=== PATIENT | female | born 1975 | race Caucasian/White ===

== ENCOUNTER → 2023-07-08 | Outpatient (CLI) | payer OTHER ==
--- NOTE | 2023-07-08 17:36 | P.SLEEP ---
History of Present Illness DATE: 07/08/2023 CONSULTATION/NEW PATIENT EVALUATION HISTORY OF PRESENT ILLNESS/SLEEP-WAKE EVALUATION: 47-year-old lady had been evaluated in the sleep center for possible obstructive sleep apnea hypopnea syndrome. Patient has history of obstructive sleep apnea hypopnea syndrome diagnosed in 2016. At that time patient was treated with BiPAP. Her BiPAP unit is not working properly for about 1 year, patient did not use it for that period of time. I checked unit, motor life expectancy have been exceeded. SLEEP SCHEDULE: Usually sleep schedule usually patient goes to bed around 10:3011 PM, wake up around 7 AM and gets out of bed around 10:30 AM. FALLING ASLEEP: Patient has problems with falling asleep. DURING SLEEP: Patient snores, has episodes of stop breathing during the sleep, wakes up from sleep up to 4 times with more than 2 times episodes of nocturia. Positive history of leg cramps, gasping for air, feeling cold No history of hypnogogical hallucinations, sleep paralysis, or cataplexy. Positive history of sleep talking, palpitations, panic attacks, grinding teeth. DURING THE DAY/WAKE STATE: In the morning patient wake up tired, has difficulties to place attention, with about his sleep. [place] sleepiness scale is 9, which is borderline. Usually patient doesn't take naps. PAST MEDICAL HISTORY: History of CHF, history of cardiac arrhythmia. PAST SURGICAL HISTORY: Bicuspid aortic valve replacement, pulmonary well through placement, pacemaker/defibrillator insertion. MEDICATIONS: Coreg 12.5 mg twice a day, Bumex 2 mg twice a day, allopurinol 100 mg once a day, Entresto 97 mg twice a day. SOCIAL HISTORY: Positive history of smoking for about 16 years 2 packs a day quit in 2011, alcohol consumption none. FAMILY HISTORY: Hypertension, cancer. REVIEW OF SYSTEMS: Loud snoring, multiple awakenings from sleep. No fevers. No double vision. No recent chest pain. No shortness of breath. No abdominal pain. No bleeding episodes. No blood in urine. No seizure episodes. PHYSICAL EXAMINATION: GENERAL: A pleasant patient without any distress. VITAL SIGNS: BP 102/72 , HR 85 , RR 12 , weight 292.8 pounds, height 5 foot 5 inches, body mass index 48.5 . HEENT: PERRLA, EOMI. Evaluation of oropharynx showed tongue protrudes midline, low position of soft palate Mallampati 3. NECK: Supple. No JVD. Thyroid is not palpable. 16 inches in circumference. LUNGS: Clear to percussion and to auscultation. Good air exchange. No wheezing or rhonchi. HEART: S1, S2 regular. No murmurs, gallops or rubs. ABDOMEN: Soft and nontender. Bowel sounds are present. No organomegaly appreciated. EXTREMITIES: No clubbing or cyanosis. MIXER WET POUR: Awake, alert, and oriented x3. Cranial nerves 2 to 7 intact. There is no fasciculation or atrophy noted. No focal deficits observed. ASSESSMENT: 1. Loud snoring, multiple awakenings from sleep, small oropharyngeal airspace, wide neck 16 inches in circumference. Obstructive sleep apnea hypopnea syndrome. 2. History of CHF. 3. Status post bicuspid aortic valve replacement. 4. Status post pulmonary valve replacement. 5 status post cardiac arrest in 2011. 6 . Status post permanent pacemaker defibrillator insertion. 7. Obesity, BMI 48.5. PLAN: 1. Polysomnography for evaluation of patient's breathing during sleep. 2. CPAP/BiPAP titration if sleep study confirms obstructive sleep apnea- hypopnea syndrome. 3. Preferable position during sleep on the side. 4. No driving if patient feels any sleepiness. Patient is aware of civil and criminal liability for unsafe driving. 5. Sleep hygiene with regular sleep time for at least 7.5-8 hours. 6. Watching and losing weight. Thank you very much for referring this patient for consultation. Sincerely, Nilay Napoles MD, PhD, FAASM. Diplomat of [place] [employer], Sleep Medicine Board by [place] [employer] Specialities [place] Board of [employer] Medicine Sports Book Server of [facility] [place] Sleep Note - Sleep Note Sleep Note: Temperature: Pulse Rate: Respiratory Rate: Blood Pressure: SpO2: Height: Weight: BMI: Neck Circumference:
== END ==
LOC: 3 N SLEEP 14:45
PROVIDERS: ATTEND Internal Medicine
DX: G47.33 Obstructive sleep apnea (adult) (pediatric) (principal); E66.9 Obesity, unspecified; I50.9 Heart failure, unspecified; Z87.891 Personal history of nicotine dependence; Z95.2 Presence of prosthetic heart valve; Z95.4 Presence of other heart-valve replacement; Z68.42 Body mass index [BMI] 45.0-49.9, adult; Z95.0 Presence of cardiac pacemaker
CPT/HCPCS: 99202

== ENCOUNTER → 2023-07-26 | Outpatient (CLI) | payer OTHER ==
--- NOTE | 2023-07-29 12:05 | P.PCN ---
Description of Procedure: POLYSOMNOGRAPHY REPORT PROCEDURE(S)/DATE(S): Polysomnography 07/26/2023 CLINICAL: Patient has been seen in the sleep center for evaluation of obstructive sleep apnea-hypopnea syndrome. Please see my consultation. Sleep study has been done for evaluation of patient breathing during the sleep. PROCEDURE: The standard montage for clinical polysomnography included the electroencephalogram, the electrooculogram, the mentalis surface electromyography and Lead II cardiography. The respiratory battery consisted of measurements of nasal/buccal air flow, pressure transducer measurements from nose, thoracic and/or abdominal effort and intercostal surface electromyography. Video monitoring has been done to check for any parasomnia events. Nocturnal oxyhemoglobin saturations were obtained by finger oximetry. Step-mario titration with positive airway pressure was utilized to control the respiratory events, if necessary. RESULTS: During the diagnostic sleep study sleep efficiency was significantly decreased to 70.7 %. Latency to sleep onset was normal 17.0 min. Sleep archite cture showed stage NI was extremely high 29.0 %, Delta sleep was normal 8.2 %, REM sleep was practically absent 0.2 %. Respiratory channel showed 0 obstructive apneas, 1 mixed apneas, 0 central apne as, 102 hypopneas with lowest oxygen level 71 %. Total apnea hypopnea index was 22.5. Heart rate was in the range between 58 and 69, average 62. EMG showed 35.2 periodic limb movements per hour with 0.9 micro-arousals per hour. IMPRESSIONS: 1. Moderate Obstructive sleep apnea hypopnea syndrome. 2. Significant periodic limb movements have been documented. Please see other impressions from consultation PLAN: 1. The patient will have PAP titration for correction of respiratory abnormalities during the sleep. 2. Losing weight program. 3. Sleep hygiene with regular time in bed for at least 7-1/2 hours. 4. No driving if feeling sleepiness. 5. Please check iron profile including ferritin level. Low level of iron may increase the risk for periodic limb movements. Thank you very much for allowing me to participate in the management of your patient. Sincerely, Nilay Napoles MD, PhD, FAASM. Diplomat of [place] [employer] Medicine, Sleep Medicine Board by [place] [employer] Medicine Circular Ripsaw Operator of [facility] [place]
== END ==
LOC: 3 N SLEEP 18:47
PROVIDERS: ATTEND Internal Medicine
DX: G47.33 Obstructive sleep apnea (adult) (pediatric) (principal)
CPT/HCPCS: 95810

== ENCOUNTER 2023-09-28 19:26 | Outpatient (CLI) | payer OTHER ==
--- NOTE | 2023-10-01 12:48 | P.PCN ---
Description of Procedure: CLINICAL: Titration with positive air pressure has been done for correction of respiratory abnormalities during sleep. DESCRIPTION OF PROCEDURE: The standard montage for clinical polysomnography included the electroencephalogram, the electrocardiogram, the mentalis surface electromyography and Lead II cardiography. The respiratory battery consisted of measurements of nasal /buccal air flow, pressure transducer measurements from the nose, thoracic and /or abdominal effort and intercostal surface electromyography. Video monitoring has been done to check for any parasomnia events. Nocturnal oxyhemoglobin saturations were obtained by finger oximetry. Step-mario titration with positive airway pressure was utilized to control respiratory events. Raw data of sleep recording has been reviewed and is adequate. RESULTS: Patient left against medical advice in 48 minutes after testing was started. Patient did not fell asleep. Patient did not feel comfortable with lowest CPAP pressure of 4 cm of water and BiPAP 6/ 4 cm of water . IMPRESSION: 1. Moderate obstructive sleep apnea hypopnea syndrome, patient left PAP titration test against medical advice. Please see other impressions from consultation. PLAN: 1. I will see patient for follow-up visit to discuss following plan. We may consider other options for treatment of obstructive sleep apnea including oral appliances. 2. Watching and losing weight. 3. Sleep hygiene with regular time in bed for at least 8 hours. 4. No driving if feeling any sleepiness. Thank you very much for allowing me to participate in the management of your patient. Sincerely, Nilay Napoles MD, PhD, FAASM Diplomat of [place] Board of Medical Specialties Sleep Medicine Board of [place] Board of Internal Medicine Department Mgr of [facility] [place]
== END 2023-09-28 23:15 | disposition left against medical advice (07) ==
LOC: 3 N SLEEP 19:26
PROVIDERS: ATTEND Internal Medicine
DX: G47.33 Obstructive sleep apnea (adult) (pediatric) (principal); I50.9 Heart failure, unspecified; E66.9 Obesity, unspecified; Z87.891 Personal history of nicotine dependence; Z95.4 Presence of other heart-valve replacement; Z86.74 Personal history of sudden cardiac arrest; Z68.42 Body mass index [BMI] 45.0-49.9, adult; Z95.0 Presence of cardiac pacemaker

== ENCOUNTER → 2023-10-22 | Outpatient (CLI) | payer OTHER ==
--- NOTE | 2023-10-22 11:41 | P.PN ---
Subjective DATE: 10/22/2023 FOLLOW UP VISIT. Patient with obstructive sleep apnea hypopnea syndrome return to sleep center for follow-up visit. Information from previous visit have been reviewed. Diagnostic polysomnogram on 07/26/2023 showed apnea-hypopnea index 22.5 with oxygen desaturation to 71%. We tried to repeat Pap titration, but patient was not able to tolerate CPAP pressure at all. Patient is using her BPAP equipment every night for the whole night, getting PAP supplies in time. The patient does not have significant problems with the mask, PAP unit and humidification. [place] sleepiness scale is increased to 14. I checked information from PAP unit. PAP unit pressure maximal inspiratory pressure 10, minimal expiratory pressure 6, pressure-support to, average pressure 9.8 over 7.9 cm H2O. Usage is 100 % for more then 4 hours, average 7.2 hours per night. Leak is increased to 34 l/m. Apnea Hypopnea Index is 0.4, which is normal. BiPAP unit is old, multiple life expectancy exceeded. MEDICATIONS:1. Coreg 12.5 mg twice a day 2. Bumex 2 mg twice a day 3. Allopurinol 100 mg once a day 4. Entresto 97 mg twice a day During physical exam: GENERAL: A pleasant patient without any distress. VITAL SIGNS: BP 104/65, HR 78, RR 16 , weight 292, temperature 98.0, oxygen saturation at room air 99 % . HEENT: PERRLA, EOMI.low position of soft palate, Mallapati 3 . NECK: Supple. No JVD. LUNGS: Clear to percussion and to auscultation. Good air exchange. No wheezing or rhonchi. HEART: S1, S2 regular. ABDOMEN: Soft and nontender. Obese EXTREMITIES: No clubbing or cyanosis. POCKET GRINDER OPERATOR: Awake, alert, and oriented x3. No focal deficit. We tried CPAP in the office at the level of 6 cm of water, patient was not able to tolerated the pressure. Impressions: 1. Obstructive sleep apnea-hypopnea syndrome. Patient demonstrated great compliance with treatment, benefiting from treatment. Patient is using BiPAP equipment, does not tolerate CPAP. 2. Obesity. 3. Status post bicuspid aortic valve replacement. 4. Status post pulmonary valve replacement. 5. Status post cardiac arrest in 2011. 6. History of CHF. 7. Status post permanent pacemaker insertion. Plan: 1. Continue using BPAP equipment every night for the whole night. Prescription to replace BiPAP unit to a new one have been written. 2. To change air filter at least 1-2 times per month. 3. PAP unit should stay lower then position of the head. 4. Advised patient to remove all remaining water from humidifier canister daily and make it dry after each usage. Refill canister with fresh distilled water before each usage. 5. Sleep hygiene with regular time in bed for at least 8 hours. 6. Precautions related to driving. No driving if feel any sleepiness. 7. I will maintain prescription for PAP supplies including mask, tube, filters. 8. Follow up visit in 1-3 months after patient will get new BiPAP equipment. 9. Watching and losing weight. Thank you very much for allowing me to participate in the management of your patient. Nilay Napoles MD, PhD, FAASM. Diplomat of [place] [employer] Medicine, Sleep Medicine Board by [place] Board of [employer] Medicine Metal Trades Instructor of [facility] [place]
== END ==
LOC: 3 N SLEEP 10:43
PROVIDERS: ATTEND Internal Medicine
DX: G47.30 Sleep apnea, unspecified (principal); G47.33 Obstructive sleep apnea (adult) (pediatric); E66.9 Obesity, unspecified; I50.9 Heart failure, unspecified; Z95.2 Presence of prosthetic heart valve; Z95.0 Presence of cardiac pacemaker; Z86.74 Personal history of sudden cardiac arrest; Z99.89 Dependence on other enabling machines and devices
CPT/HCPCS: 99212